=== PATIENT | male | born 1970 | race Caucasian/White ===

== ENCOUNTER 2024-06-13 11:59 | Emergency (ER) | payer SELFPAY ==
[~2024-06-13] VITALS: Ht 167.6 cm; Wt 104.3 kg
[2024-06-13 12:30] VITALS: PULSE 88; RESP 18; TEMP 98.1; O2SAT 97
[2024-06-13] MEDS ORDERED: ULTRAM 50MG50 MG PO (12:54)
[2024-06-13] MEDS ORDERED: TYLENOL325 MG PO (12:54)
== END 2024-06-13 13:05 | disposition home or self-care (01) ==
LOC: FSED 12:16
DX: S86.811A Strain of other muscle(s) and tendon(s) at lower leg level, right leg, initial encounter (principal); X50.0XXA Overexertion from strenuous movement or load, initial encounter; Y93.E6 Activity, residential relocation; Y92.89 Other specified places as the place of occurrence of the external cause
CPT/HCPCS: 99283